=== PATIENT | male | born 1995 | race Caucasian/White ===

== ENCOUNTER 2016-11-08 18:56 | Emergency (ER) | payer SELFPAY ==
[2016-11-08 19:14] VITALS: BP 138/65
--- NOTE | 2016-11-08 19:40 | EDM.PDOC ---
ED HPI GENERAL MEDICAL PROBLEM - General Chief Complaint: Abdominal Pain Stated Complaint: LOWER ABDOMINAL/GROIN PAIN Time Seen by Provider: 11/08/16 19:39 Source of Information: Reports: Patient History Limitations: Reports: No Limitations - History of Present Illness INITIAL COMMENTS - FREE TEXT/NARRATIVE: 21 y/o M with lower abd pain. Started today. Has had it previously over past few months, has always resolved without seeking medical attention. Pain is located across lower abdomen. Sharp. Constant. Waxes and wanes, no provoking or relieving factors. Currently moderate severity. No known injury but he does lift weights. No Fever. No vomiting/diarrhea/constipation. Normal BM today,no blood. No dysuria or hematuria. Pain does radiate to testicular area. Mild testicular pain. No swelling or injury or discharge. Lower Abdomen Pain Score (Numeric/FACES): 5 - Related Data Allergies Allergy/AdvReac Type Severity Reaction Status Date / Time No Known Allergies Allergy Verified 11/08/16 19:14 Home Meds: Home Meds . [No Known Home Meds] 11/08/16 [History] Past Medical History - Past Health History Medical/Surgical History: Denies Medical/Surgical History Social & Family History - Tobacco Use Smoking Status *Q: Never Smoker - Caffeine Use Caffeine Use: Reports: Soda - Recreational Drug Use Recreational Drug Use: No ED ROS GENERAL - Review of Systems Review Of Systems: See Below Constitutional: Denies: Fever HEENT: Reports: No Symptoms Respiratory: Denies: Shortness of Breath, Cough Cardiovascular: Denies: Chest Pain Endocrine: Reports: No Symptoms GI/Abdominal: Reports: Abdominal Pain : Denies: Dysuria Musculoskeletal: Reports: No Symptoms ED EXAM, GI/ABD - Physical Exam Exam: See Below Exam Limited By: No Limitations General Appearance: Alert, WD/WN, No Apparent Distress Ears: Normal External Exam Nose: Normal Inspection Throat/Mouth: Normal Inspection, Normal Voice, No Airway Compromise Head: Atraumatic, Normocephalic Neck: Normal Inspection, Supple, Non-Tender, Full Range of Motion Respiratory/Chest: No Respiratory Distress, Lungs Clear, Normal Breath Sounds, No Accessory Muscle Use Cardiovascular: Normal Peripheral Pulses, Regular Rate, Rhythm, No Murmur GI/Abdominal Exam: Soft, No Distention, Other (+LLQ and RLQ TTP, mild, no rebound/guarding, no palpable hernia or mass) (Male) Exam: No Hernia, Normal Inspection, Normal Prostate, Scrotum Tenderness (L), Scrotum Tenderness (R) (mild TTP, skin normal). No: Urethral Discharge Neurological: Alert, Oriented, Normal Cognition Psychiatric: Normal Affect, Normal Mood Skin Exam: Warm, Dry, Intact, Normal Color, No Rash Course - Vital Signs Last Recorded V/S: Last Vital Signs Temp 36.8 C 11/08/16 19:11 Pulse 80 11/08/16 19:11 Resp 16 11/08/16 19:11 BP 138/65 11/08/16 19:11 Pulse Ox 99 11/08/16 19:11 - Orders/Labs/Meds Orders: Active Orders 24 hr Category Date Time Status Scrotum and Contents [US] Stat Exams 11/08/16 19:39 Taken Labs: Laboratory Tests 11/08/16 11/08/16 11/08/16 Range/Units 19:39 19:51 19:55 WBC 9.92 H (4.23-9.07) K/mm3 RBC 4.45 L (4.63-6.08) M/mm3 Hgb 13.3 L (13.7-17.5) gm/L Hct 38.3 L (40.1-51.0) % MCV 86.1 (79.0-92.2) fl MCH 29.9 (25.7-32.2) pg MCHC 34.7 (32.2-35.5) g/dl RDW Std Deviation 39.0 (35.1-43.9) fL Plt Count 176 (163-337) K/mm3 MPV 9.7 (9.4-12.3) fl Neut % (Auto) 68.0 H (34.0-67.9) % Lymph % (Auto) 20.8 L (21.8-53.1) % [place] % (Auto) 9.3 (5.3-12.2) % Eos % (Auto) 1.7 (0.8-7.0) Baso % (Auto) 0.0 L (0.1-1.2) % Neut # (Auto) 6.75 H (1.78-5.38) K/mm3 Lymph # (Auto) 2.06 (1.32-3.57) K/mm3 [place] # (Auto) 0.92 H (0.30-0.82) K/mm3 Eos # (Auto) 0.17 (0.04-0.54) K/mm3 Baso # (Auto) 0.00 L (0.01-0.08) K/mm3 Sodium 141 (136-145) mEq/L Potassium 4.1 (3.5-5.1) mEq/L Chloride 106 (98-107) mEq/L Carbon Dioxide 30 (21-32) mEq/L Anion Gap 9.1 (5-15) BUN 14 (7-18) mg/dL Creatinine 1.1 (0.7-1.3) mg/dL Est Cr Clr Drug Dosing 108.76 mL/min Estimated GFR (MDRD) > 60 (>60) mL/min BUN/Creatinine Ratio 12.7 L (14-18) Glucose 100 (74-106) mg/dL Calcium 8.9 (8.5-10.1) mg/dL Total Bilirubin 1.6 H (0.2-1.0) mg/dL AST 15 (15-37) U/L ALT 22 (16-63) U/L Alkaline Phosphatase 52 (46-116) U/L Total Protein 7.1 (6.4-8.2) g/dl Albumin 4.0 (3.4-5.0) g/dl Globulin 3.1 gm/dL Albumin/Globulin Ratio 1.3 (1-2) Lipase 77 (73-393) U/L Urine Color Yellow (Yellow) Urine Appearance Clear (Clear) Urine pH 6.5 (5.0-8.0) Ur Specific [place] > or = 1.030 (1.005-1.030) Urine Protein Trace H (Negative) Urine Glucose (UA) Negative (Negative) Urine Ketones Trace H (Negative) Urine Occult Blood Negative (Negative) Urine Nitrite Negative (Negative) Urine Bilirubin Negative (Negative) Urine Urobilinogen 1.0 (0.2-1.0) Ur Leukocyte Esterase Negative (Negative) Urine RBC 0-5 (0-5) /hpf Urine WBC 0-5 (0-5) /hpf Ur Epithelial Cells Not seen (0-5) /hpf Urine Bacteria Rare (FEW) /hpf Urine Mucus Many H (FEW) /hpf - Re-Assessments/Exams Free Text/Narrative Re-Assessment/Exam: 11/08/16 21:31 Scrotal u/s normal. Labs unremarkable. Exam benign. No definite explanation for pain, possible abdominal wall strain. Plan = ED recheck if worse tomorrow, otherwise PCP f/u as needed. Discussed return precautions. Departure - Departure Time of Disposition: 21:16 Disposition: Home, Self-Care 01 Clinical Impression: Abdominal pain Qualifiers: Abdominal location: lower abdomen, unspecified Qualified Code(s): R10.30 - Lower abdominal pain, unspecified - Discharge Information Instructions: Abdominal Pain, Adult, [id number] Referrals: PCP,None [Primary Care Provider] - Forms: ED Department Discharge Additional Instructions: 1. Take tylenol (acetaminophen) and or ibuprofen as needed for pain 2. Return to the ED for a recheck if your pain gets worse 3. Otherwise follow up with a clinic provider as needed. You may call [phone] if you'd like to schedule here - My Orders Last 24 Hours: My Active Orders 11/08/16 19:39 Scrotum and Contents [US] Stat - Assessment/Plan Last 24 Hours: My Active Orders 11/08/16 19:39 Scrotum and Contents [US] Stat
--- NOTE | 2016-11-12 18:07 | US ---
Testicular ultrasound: Multiple real-time images of the testicles were obtained. Comparison: No previous study. Right and left testicles have a homogeneous ultrasound appearance. No intratesticular abnormality is seen. Both arterial and venous blood flow are seen within the testicles. Small epididymal cyst on the left side measuring 3 mm is seen. Slightly prominent vasculature is noted within the left epididymis possibly due to epididymitis. No significant hydrocele is seen with only minimal fluid seen around the left testicle. Measurements: Right testicle: 4.3 x 2.2 x 3.1 cm Left testicle: 4.3 x 2.1 x 3.1 cm Impression: 1. Slight increased blood flow within the left epididymis raising the possibility of epididymitis. 2. Small epididymal cyst on the left side measuring 3 mm. 3. Testicular ultrasound is otherwise unremarkable. Diagnostic code #3 I mostly agree with preliminary report issued by [facility] - with additional finding of possible left-sided epididymitis ([facility] report finalized on 11/08/16, 9:55 PM Central Time)
== END 2016-11-08 21:31 | disposition home or self-care (01) ==
LOC: JD.ED 18:56 → EDBD 18:56 → JD.ED 21:31
DX: R10.30 Lower abdominal pain, unspecified (principal)
CPT/HCPCS: 36415; 76870; 76870-26; 80053; 81001; 83690; 85025; 93975; 99283; 99284-25

== ENCOUNTER → 2020-06-08 | Day surgery (SDC) | payer BC ==
[~2020-06-08] MED LIST: Bupivacaine 0.5%/EPINEPHrine 1:200,000 50 ML MDV ONE; Dexamethasone 4 MG/ML 5 ML MDV ONE; Glycopyrrolate 0.2 MG/ML SDV ONE; HYDROmorphone 0.5 MG/0.5 ML Syringe IVPUSH PRN; HYDROmorphone 0.5 MG/0.5 ML Syringe ONE; Iopamidol 612 MG/ML 100 ML Bottle IVPUSH ONE; Iopamidol 612 MG/ML 50 ML SDV IVPUSH ONE; Ketorolac 30 MG/ML SDV ONE; Labetalol 100 MG/20 ML MDV ONE; Lactated Ringers 1,000 ML IV SCH; Lactated Ringers 1,000 ML ONE; Lactated Ringers 500 ML IV ONE; Lidocaine 1% 4 ML ONE; Midazolam 1 MG/ML 2 ML SDV IVPUSH PRN; Midazolam 1 MG/ML 2 ML SDV ONE; Ondansetron 4 MG/2 ML SDV IVPUSH PRN; Ondansetron 4 MG/2 ML SDV ONE; Propofol 200 MG/20 ML SDV ONE; Rocuronium 50 MG/5 ML Vial ONE; Sodium Chloride 0.9% 10 ML Syringe FLUSH SCH; Succinylcholine/Sod PF 100 MG/5 ML SYRINGE IV ONE; cefOXitin 2 GM in Premix Bag 1 BAG IV ONE; diphenhydrAMINE 50 MG/ML SDV IVPUSH PRN; ePHEDrine 50 MG/ML SDV IVPUSH PRN; fentaNYL 100 MCG/2 ML SDV IVPUSH PRN; fentaNYL 250 MCG/5 ML SDV ONE; oxyCODONE 5 MG Tab PO PRN
--- NOTE | 2020-06-08 16:05 | EDM.PDOC ---
ED HPI GENERAL MEDICAL PROBLEM - General Chief Complaint: Abdominal Pain Stated Complaint: GROIN PAIN Time Seen by Provider: 06/08/20 16:05 - History of Present Illness INITIAL COMMENTS - FREE TEXT/NARRATIVE: 24-year-old male presents the emergency room with back pain and groin pain. Yesterday the patient had pretty significant back pain and flank pain. This seemed to resolve overnight but this morning the patient had worsening testicular and groin pain. Patient has had pain like this several years ago. He is thought to have a hernia in the past but this can never really been diagnosed. He is not any fevers and chills. However, at the pain it is worse the patient had significant nausea with this but no vomiting he has had decreased appetite all day. The patient does a lot of heavy work is been doing a lot of heavy lifting but this is not new for him. The patient is also noted to be tachycardic he denies any illicit drug use. He is on methylphenidate. abdomen/groin Pain Score (Numeric/FACES): 4 - Related Data Allergies Allergy/AdvReac Type Severity Reaction Status Date / Time No Known Allergies Allergy Verified 06/08/20 15:36 Home Meds: Home Meds Methylphenidate HCl [Methylphenidate ER] 54 mg PO DAILY 06/08/20 [History] Past Medical History - Past Health History Medical/Surgical History: Denies Medical/Surgical History Social & Family History - Tobacco Use Years of Tobacco use: 7 - Caffeine Use Caffeine Use: Reports: Soda - Recreational Drug Use Recreational Drug Use: No ED ROS GENERAL - Review of Systems Review Of Systems: See Below Constitutional: Denies: Fever, Chills HEENT: Reports: No Symptoms Respiratory: Reports: No Symptoms Cardiovascular: Reports: No Symptoms GI/Abdominal: Reports: Abdominal Pain, Nausea. Denies: Constipation, Diarrhea, Vomiting : Reports: No Symptoms Musculoskeletal: Reports: Back Pain (He had back pain yesterday but this seems to have resolved) Skin: Reports: No Symptoms Neurological: Reports: No Symptoms ED EXAM, GI/ABD - Physical Exam Exam: See Below Exam Limited By: No Limitations General Appearance: Alert, No Apparent Distress Head: Atraumatic, Normocephalic Neck: Normal Inspection, Supple, Non-Tender, Full Range of Motion Respiratory/Chest: No Respiratory Distress, Lungs Clear, Normal Breath Sounds Cardiovascular: Regular Rate, Rhythm, No Edema, No Murmur GI/Abdominal Exam: Normal Bowel Sounds, Soft. No: Hernia (Male) Exam: Normal Inspection, Circumcised, Testicular Tenderness (L) (Mild tenderness does not palpate abnormal.). No: Hernia, Inguinal Lymphadenopathy, Penile Lesions, Rash, Testicular Mass Back Exam: Normal Inspection. No: CVA Tenderness (L), CVA Tenderness (R), Muscle Spasm, Paraspinal Tenderness, Vertebral Tenderness Extremities: Normal Inspection, No Pedal Edema Neurological: Alert, Oriented, Normal Cognition Psychiatric: Normal Affect, Normal Mood Course - Vital Signs Last Recorded V/S: Last Vital Signs Temp 36.8 C 06/08/20 15:34 Pulse 107 H 06/08/20 15:34 Resp 18 06/08/20 15:34 BP 160/94 H 06/08/20 15:34 Pulse Ox 96 06/08/20 15:34 - Orders/Labs/Meds Orders: Active Orders 24 hr Category Date Time Status CORONAVIRUS COVID-19 RAPID [MOLEC] Stat Lab 06/08/20 18:45 Ordered Lactated Ringers [Ringers, Lactated] 1,000 ml Med 06/08/20 16:45 Active IV ASDIRECTED Sodium Chloride 0.9% [Saline Flush] Med 06/08/20 17:15 Active 10 ml FLUSH ASDIRECTED Medication Orders Lactated Ringer's (Ringers, Lactated) 1,000 mls @ 125 mls/hr IV ASDIRECTED NAVA Sodium Chloride (Sodium Chloride 0.9% 10 Ml Syringe) 10 ml FLUSH ASDIRECTED NAVA Last Admin: 06/08/20 17:33 Dose: 10 ml Documented by: MARIA EUGENIA Labs: Laboratory Tests 06/08/20 06/08/20 06/08/20 Range/Units 16:51 16:51 18:09 WBC 13.14 H (4.23-9.07) K/mm3 RBC 4.88 (4.63-6.08) M/mm3 Hgb 14.3 (13.7-17.5) gm/dl Hct 42.4 (40.1-51.0) % MCV 86.9 (79.0-92.2) fl MCH 29.3 (25.7-32.2) pg MCHC 33.7 (32.2-35.5) g/dl RDW Std Deviation 40.5 (35.1-43.9) fL Plt Count 216 (163-337) K/mm3 MPV 9.8 (9.4-12.3) fl Neut % (Auto) 86.3 H (34.0-67.9) % Lymph % (Auto) 8.1 L (21.8-53.1) % [place] % (Auto) 5.3 (5.3-12.2) % Eos % (Auto) 0.1 L (0.8-7.0) Baso % (Auto) 0.0 L (0.1-1.2) % Neut # (Auto) 11.34 H (1.78-5.38) K/mm3 Lymph # (Auto) 1.07 L (1.32-3.57) K/mm3 [place] # (Auto) 0.69 (0.30-0.82) K/mm3 Eos # (Auto) 0.01 L (0.04-0.54) K/mm3 Baso # (Auto) 0.00 L (0.01-0.08) K/mm3 Manual Slide Review Abnormal smear Sodium 143 (136-145) mEq/L Potassium 4.0 (3.5-5.1) mEq/L Chloride 104 (98-107) mEq/L Carbon Dioxide 29 (21-32) mEq/L Anion Gap 14.0 (5-15) BUN 14 (7-18) mg/dL Creatinine 1.0 (0.7-1.3) mg/dL Est Cr Clr Drug Dosing 116.60 mL/min Estimated GFR (MDRD) > 60 (>60) mL/min BUN/Creatinine Ratio 14.0 (14-18) Glucose 103 (74-106) mg/dL Calcium 9.2 (8.5-10.1) mg/dL Total Bilirubin 1.7 H (0.2-1.0) mg/dL AST 16 (15-37) U/L ALT 24 (16-63) U/L Alkaline Phosphatase 52 (46-116) U/L Total Protein 7.5 (6.4-8.2) g/dl Albumin 4.4 (3.4-5.0) g/dl Globulin 3.1 gm/dL Albumin/Globulin Ratio 1.4 (1-2) Urine Color Yellow (Yellow) Urine Appearance Clear (Clear) Urine pH 7.5 (5.0-8.0) Ur Specific [place] 1.015 (1.005-1.030) Urine Protein Negative (Negative) Urine Glucose (UA) Negative (Negative) Urine Ketones Negative (Negative) Urine Occult Blood Negative (Negative) Urine Nitrite Negative (Negative) Urine Bilirubin Negative (Negative) Urine Urobilinogen 0.2 (0.2-1.0) Ur Leukocyte Esterase Negative (Negative) Meds: Medications Generic Name Dose Route Start Last Admin Trade Name Freq PRN Reason Stop Dose Admin Lactated Ringer's 1,000 mls @ 125 mls/hr 06/08/20 16:45 Ringers, Lactated IV ASDIRECTED NAVA Sodium Chloride 10 ml 06/08/20 17:15 06/08/20 17:33 Sodium Chloride 0.9% 10 Ml Syringe FLUSH 10 ml ASDIRECTED NAVA Administration Discontinued Medications Generic Name Dose Route Start Last Admin Trade Name Freq PRN Reason Stop Dose Admin Lactated Ringer's 500 mls @ 999 mls/hr 06/08/20 16:41 06/08/20 17:00 Ringers, Lactated IV 06/08/20 17:11 999 mls/hr .BOLUS ONE Administration Iopamidol 50 ml 06/08/20 17:02 06/08/20 17:33 Iopamidol 612 Mg/Ml 50 Ml Sdv IVPUSH 06/08/20 17:03 50 ml ONETIME ONE Administration Iopamidol 100 ml 06/08/20 17:02 06/08/20 17:33 Iopamidol 612 Mg/Ml 100 Ml Bottle IVPUSH 06/08/20 17:03 100 ml ONETIME ONE Administration - Re-Assessments/Exams Free Text/Narrative Re-Assessment/Exam: 06/08/20 18:48 Patient has a modestly elevated white count at slightly over 13,000. CT for his left-sided abdominal pain shows a acute appendicitis on the right side. I did discuss this with the patient and reexamined the patient now the patient does have pain on the right lower quadrant but it is not as severe as the pain on the left. No rebound tenderness yet. Case discussed with Dr. Jones, on-call surgeon who will come evaluate the patient anticipating appendectomy last time the patient ate anything as he had a protein bar between 11 and 1130 this morning. He has had nothing else to eat or drink after this. Departure - Departure Time of Disposition: 18:49 Disposition: DC/Tfer to Critical Access 66 Clinical Impression: Acute appendicitis - Discharge Information Referrals: PCP,None [Primary Care Provider] - Forms: ED Department Discharge Sepsis Event Note (ED) - Evaluation Sepsis Screening Result: No Definite Risk - Focused Exam Vital Signs: Vital Signs Temp Pulse Resp BP Pulse Ox 06/08/20 15:34 36.8 C 107 H 18 160/94 H 96 - My Orders Last 24 Hours: My Active Orders 06/08/20 16:45 Lactated Ringers [Ringers, Lactated] 1,000 ml IV ASDIRECTED 06/08/20 17:15 Sodium Chloride 0.9% [Saline Flush] 10 ml FLUSH ASDIRECTED 06/08/20 18:45 CORONAVIRUS COVID-19 RAPID [MOLEC] Stat - Assessment/Plan Last 24 Hours: My Active Orders 06/08/20 16:45 Lactated Ringers [Ringers, Lactated] 1,000 ml IV ASDIRECTED 06/08/20 17:15 Sodium Chloride 0.9% [Saline Flush] 10 ml FLUSH ASDIRECTED 06/08/20 18:45 CORONAVIRUS COVID-19 RAPID [MOLEC] Stat
--- NOTE | 2020-06-08 17:57 | CT ---
CT abdomen and pelvis Technique: Multiple axial sections were obtained from above the dome of the diaphragm inferiorly through the pubic symphysis. Intravenous contrast was utilized. No oral contrast has been given. Delayed images were obtained through the bladder. Reconstructed coronal and sagittal images were obtained. Comparison: No prior abdominal imaging is available. Findings: Appendix is enlarged. Inflammatory change is also noted around the base of the appendix. Findings are compatible with appendicitis. Visualized lung bases show a nodule on the right side with slight surrounding parenchymal scarring. Nodule shows a small amount of central calcification. This finding is most likely due to a large granuloma measuring 1.7 cm. Liver contains no focal abnormality. Spleen size is normal. Adrenal glands show no nodule. Pancreas appears within normal limits. Gallbladder contains no calcified gallstones. Kidneys show symmetric contrast enhancement with no hydronephrosis or mass. Abdominal aorta shows no aneurysm. No retroperitoneal adenopathy or mesenteric abnormalities are seen. No pelvic mass or adenopathy is appreciated. Delayed images show contrast within both distal ureters and the bladder. Bone window settings were reviewed which show no acute osseous finding. Impression: 1. Findings within the pelvis are compatible with appendicitis. 2. Other findings as noted above which are felt to be nonacute. Diagnostic code #5
--- NOTE | 2020-06-08 19:08 | PCM.PREANE ---
Preanesthetic Assessment - Procedure Proposed Procedure: Laparoscopic Appendectomy - Anesthesia/Transfusion/Family Hx Anesthesia History: Prior Anesthesia Without Reaction Family History of Anesthesia Reaction: No Transfusion History: No Prior Transfusion(s) Intubation History: Unknown - Review of Systems General: No Symptoms Pulmonary: No Symptoms (chews tobacco) Cardiovascular: No Symptoms, Palpitations Gastrointestinal: No Symptoms, Nausea Neurological: No Symptoms (ADHD) Other: Reports: None - Physical Assessment NPO Status Date: 06/08/20 NPO Status Time: 11:00 Vital Signs: Last Vital Signs Temp 36.8 C 06/08/20 15:34 Pulse 107 H 06/08/20 15:34 Resp 18 06/08/20 15:34 BP 160/94 H 06/08/20 15:34 Pulse Ox 96 06/08/20 15:34 Height: 1.78 m Weight: 95.254 kg ASA Class: 2E Mental Status: Alert & Oriented x3 Airway Class: Mallampati = 2 Dentition: Reports: Normal Dentition, Caries Thyro-Mental Finger Breadths: 3 Mouth Opening Finger Breadths: 3 ROM/Head Extension: Full Lungs: Clear to Auscultation, Normal Respiratory Effort Cardiovascular: Regular Rate, Regular Rhythm, No Murmurs - Lab Values: Laboratory Last Values WBC 13.14 K/mm3 (4.23-9.07) H 06/08/20 16:51 RBC 4.88 M/mm3 (4.63-6.08) 06/08/20 16:51 Hgb 14.3 gm/dl (13.7-17.5) 06/08/20 16:51 Hct 42.4 % (40.1-51.0) 06/08/20 16:51 MCV 86.9 fl (79.0-92.2) 06/08/20 16:51 MCH 29.3 pg (25.7-32.2) 06/08/20 16:51 MCHC 33.7 g/dl (32.2-35.5) 06/08/20 16:51 RDW Std Deviation 40.5 fL (35.1-43.9) 06/08/20 16:51 Plt Count 216 K/mm3 (163-337) 06/08/20 16:51 MPV 9.8 fl (9.4-12.3) 06/08/20 16:51 Neut % (Auto) 86.3 % (34.0-67.9) H 06/08/20 16:51 Lymph % (Auto) 8.1 % (21.8-53.1) L 06/08/20 16:51 [place] % (Auto) 5.3 % (5.3-12.2) 06/08/20 16:51 Eos % (Auto) 0.1 (0.8-7.0) L 06/08/20 16:51 Baso % (Auto) 0.0 % (0.1-1.2) L 06/08/20 16:51 Neut # (Auto) 11.34 K/mm3 (1.78-5.38) H 06/08/20 16:51 Lymph # (Auto) 1.07 K/mm3 (1.32-3.57) L 06/08/20 16:51 [place] # (Auto) 0.69 K/mm3 (0.30-0.82) 06/08/20 16:51 Eos # (Auto) 0.01 K/mm3 (0.04-0.54) L 06/08/20 16:51 Baso # (Auto) 0.00 K/mm3 (0.01-0.08) L 06/08/20 16:51 Manual Slide Review Abnormal smear 06/08/20 16:51 Sodium 143 mEq/L (136-145) 06/08/20 16:51 Potassium 4.0 mEq/L (3.5-5.1) 06/08/20 16:51 Chloride 104 mEq/L (98-107) 06/08/20 16:51 Carbon Dioxide 29 mEq/L (21-32) 06/08/20 16:51 Anion Gap 14.0 (5-15) 06/08/20 16:51 BUN 14 mg/dL (7-18) 06/08/20 16:51 Creatinine 1.0 mg/dL (0.7-1.3) 06/08/20 16:51 Est Cr Clr Drug Dosing 116.60 mL/min 06/08/20 16:51 Estimated GFR (MDRD) > 60 mL/min (>60) 06/08/20 16:51 BUN/Creatinine Ratio 14.0 (14-18) 06/08/20 16:51 Glucose 103 mg/dL (74-106) 06/08/20 16:51 Calcium 9.2 mg/dL (8.5-10.1) 06/08/20 16:51 Total Bilirubin 1.7 mg/dL (0.2-1.0) H 06/08/20 16:51 AST 16 U/L (15-37) 06/08/20 16:51 ALT 24 U/L (16-63) 06/08/20 16:51 Alkaline Phosphatase 52 U/L (46-116) 06/08/20 16:51 Total Protein 7.5 g/dl (6.4-8.2) 06/08/20 16:51 Albumin 4.4 g/dl (3.4-5.0) 06/08/20 16:51 Globulin 3.1 gm/dL 06/08/20 16:51 Albumin/Globulin Ratio 1.4 (1-2) 06/08/20 16:51 Urine Color Yellow (Yellow) 06/08/20 18:09 Urine Appearance Clear (Clear) 06/08/20 18:09 Urine pH 7.5 (5.0-8.0) 06/08/20 18:09 Ur Specific [place] 1.015 (1.005-1.030) 06/08/20 18:09 Urine Protein Negative (Negative) 06/08/20 18:09 Urine Glucose (UA) Negative (Negative) 06/08/20 18:09 Urine Ketones Negative (Negative) 06/08/20 18:09 Urine Occult Blood Negative (Negative) 06/08/20 18:09 Urine Nitrite Negative (Negative) 06/08/20 18:09 Urine Bilirubin Negative (Negative) 06/08/20 18:09 Urine Urobilinogen 0.2 (0.2-1.0) 06/08/20 18:09 Ur Leukocyte Esterase Negative (Negative) 06/08/20 18:09 Above labs reviewed and noted and within acceptable ranges to proceed with procedure. - Allergies Allergies/Adverse Reactions: Allergies Allergy/AdvReac Type Severity Reaction Status Date / Time No Known Allergies Allergy Verified 06/08/20 15:36 - Anesthesia Plan Pre-Op Medication Ordered: None - Acknowledgements Anesthesia Type Planned: General Anesthesia Pt an Appropriate Candidate for the Planned Anesthesia: Yes Alternatives and Risks of Anesthesia Discussed w Pt/Guardian: Yes Pt/Guardian Understands and Agrees with Anesthesia Plan: Yes PreAnesthesia Questionnaire - Past Health History Medical/Surgical History: Denies Medical/Surgical History - SUBSTANCE USE Tobacco Use Within Last Twelve Months: Snuff/Dip Recreational Drug Use History: No - HOME MEDS Home Medications: Home Meds Methylphenidate HCl [Methylphenidate ER] 54 mg PO DAILY 06/08/20 [History] - CURRENT (IN HOUSE) MEDS Current Meds: Current Medications Lactated Ringer's (Ringers, Lactated) 1,000 mls @ 125 mls/hr IV ASDIRECTED NAVA Sodium Chloride (Sodium Chloride 0.9% 10 Ml Syringe) 10 ml FLUSH ASDIRECTED NAVA Last Admin: 06/08/20 17:33 Dose: 10 ml Documented by: Discontinued Medications Lactated Ringer's (Ringers, Lactated) 500 mls @ 999 mls/hr IV .BOLUS ONE Stop: 06/08/20 17:11 Last Admin: 06/08/20 17:00 Dose: 999 mls/hr Documented by: Iopamidol (Iopamidol 612 Mg/Ml 50 Ml Sdv) 50 ml IVPUSH ONETIME ONE Stop: 06/08/20 17:03 Last Admin: 06/08/20 17:33 Dose: 50 ml Documented by: Iopamidol (Iopamidol 612 Mg/Ml 100 Ml Bottle) 100 ml IVPUSH ONETIME ONE Stop: 06/08/20 17:03 Last Admin: 06/08/20 17:33 Dose: 100 ml Documented by:
--- NOTE | 2020-06-08 19:33 | PCM.HP.2 ---
H&P History of Present Illness - General Date of Service: 06/08/20 Admit Problem/Dx: Admission Diagnosis/Problem Admission Diagnosis/Problem Appendectomy Source of Information: Patient History Limitations: Reports: No Limitations - History of Present Illness Initial Comments - Free Text/Narative: Mr. Roberts is a 24 yo man who developed groin pain this morning. He has had si milar pain in the past. However, today the pain has been worse, and became more severe abdominal pain associated with nausea. In the ER, he is found to have a WBC 13,[address] scan showing evidence of acute appendicitis. abdomen/groin Pain Score (Numeric/FACES): 4 - Related Data Allergies/Adverse Reactions: Allergies Allergy/AdvReac Type Severity Reaction Status Date / Time No Known Allergies Allergy Verified 06/08/20 15:36 Home Medications: Home Meds Methylphenidate HCl [Methylphenidate ER] 54 mg PO DAILY 06/08/20 [History] Past Medical History - Past Health History Medical/Surgical History: Denies Medical/Surgical History Social & Family History - Tobacco Use Years of Tobacco use: 7 - Caffeine Use Caffeine Use: Reports: Soda - Recreational Drug Use Recreational Drug Use: No H&P Review of Systems - Review of Systems: Review Of Systems: See Below General: Reports: Malaise HEENT: Reports: No Symptoms Pulmonary: Reports: No Symptoms Cardiovascular: Reports: No Symptoms Gastrointestinal: Reports: Abdominal Pain, Nausea Musculoskeletal: Reports: No Symptoms Skin: Reports: No Symptoms Psychiatric: Reports: No Symptoms Neurological: Reports: No Symptoms Hematologic/Lymphatic: Reports: No Symptoms Immunologic: Reports: No Symptoms Exam - Exam Exam: See Below - Vital Signs Vital Signs: Last Vital Signs Temp 36.8 C 06/08/20 15:34 Pulse 107 H 06/08/20 15:34 Resp 18 06/08/20 15:34 BP 160/94 H 06/08/20 15:34 Pulse Ox 96 06/08/20 15:34 Weight: 95.254 kg - Exam General: Alert, Oriented, Cooperative HEENT: Conjunctiva Clear Neck: Supple, Trachea Midline Lungs: Clear to Auscultation, Normal Respiratory Effort Cardiovascular: Regular Rate, Regular Rhythm GI/Abdominal Exam: Soft, No Mass, Other (mild tenderness at RLQ without peritonitis) Back Exam: Normal Inspection Extremities: Normal Inspection Skin: Warm, Dry Neuro Extensive - Mental Status: Alert, Oriented x3 Psychiatric: Normal Mood - Patient Data Lab Results Last 24 hrs: Laboratory Results - last 24 hr 06/08/20 06/08/20 06/08/20 Range/Units 16:51 16:51 18:09 WBC 13.14 H (4.23-9.07) K/mm3 RBC 4.88 (4.63-6.08) M/mm3 Hgb 14.3 (13.7-17.5) gm/dl Hct 42.4 (40.1-51.0) % MCV 86.9 (79.0-92.2) fl MCH 29.3 (25.7-32.2) pg MCHC 33.7 (32.2-35.5) g/dl RDW Std Deviation 40.5 (35.1-43.9) fL Plt Count 216 (163-337) K/mm3 MPV 9.8 (9.4-12.3) fl Neut % (Auto) 86.3 H (34.0-67.9) % Lymph % (Auto) 8.1 L (21.8-53.1) % Callahan % (Auto) 5.3 (5.3-12.2) % Eos % (Auto) 0.1 L (0.8-7.0) Baso % (Auto) 0.0 L (0.1-1.2) % Neut # (Auto) 11.34 H (1.78-5.38) K/mm3 Lymph # (Auto) 1.07 L (1.32-3.57) K/mm3 Callahan # (Auto) 0.69 (0.30-0.82) K/mm3 Eos # (Auto) 0.01 L (0.04-0.54) K/mm3 Baso # (Auto) 0.00 L (0.01-0.08) K/mm3 Manual Slide Review Abnormal smear Sodium 143 (136-145) mEq/L Potassium 4.0 (3.5-5.1) mEq/L Chloride 104 (98-107) mEq/L Carbon Dioxide 29 (21-32) mEq/L Anion Gap 14.0 (5-15) BUN 14 (7-18) mg/dL Creatinine 1.0 (0.7-1.3) mg/dL Est Cr Clr Drug Dosing 116.60 mL/min Estimated GFR (MDRD) > 60 (>60) mL/min BUN/Creatinine Ratio 14.0 (14-18) Glucose 103 (74-106) mg/dL Calcium 9.2 (8.5-10.1) mg/dL Total Bilirubin 1.7 H (0.2-1.0) mg/dL AST 16 (15-37) U/L ALT 24 (16-63) U/L Alkaline Phosphatase 52 (46-116) U/L Total Protein 7.5 (6.4-8.2) g/dl Albumin 4.4 (3.4-5.0) g/dl Globulin 3.1 gm/dL Albumin/Globulin Ratio 1.4 (1-2) Urine Color Yellow (Yellow) Urine Appearance Clear (Clear) Urine pH 7.5 (5.0-8.0) Ur Specific Mullens 1.015 (1.005-1.030) Urine Protein Negative (Negative) Urine Glucose (UA) Negative (Negative) Urine Ketones Negative (Negative) Urine Occult Blood Negative (Negative) Urine Nitrite Negative (Negative) Urine Bilirubin Negative (Negative) Urine Urobilinogen 0.2 (0.2-1.0) Ur Leukocyte Esterase Negative (Negative) Result Diagrams: 06/08/20 16:51 06/08/20 16:51 Sepsis Event Note - Evaluation Sepsis Screening Result: No Definite Risk - Focused Exam Vital Signs: Vital Signs Temp Pulse Resp BP Pulse Ox 06/08/20 15:34 36.8 C 107 H 18 160/94 H 96 Problem List Initiated/Reviewed/Updated: Yes Orders Last 24hrs: Active Orders 24 hr Category Date Time Status Patient Status [ADT] Routine ADT 06/08/20 19:06 Active CORONAVIRUS COVID-19 ISABELLE [MOLEC] Stat Lab 06/08/20 18:51 Received Lactated Ringers [Ringers, Lactated] 1,000 ml Med 06/08/20 16:45 Active IV ASDIRECTED Sodium Chloride 0.9% [Saline Flush] Med 06/08/20 17:15 Active 10 ml FLUSH ASDIRECTED cefOXitin [Mefoxin in Dextrose,Iso-Osm 2 GM/50 ML] 2 gm Med 06/08/20 19:30 O rdered Premix Bag 1 bag IV ONETIME Schedule Procedure [COMM] Stat Oth 06/08/20 19:07 Ordered Medication Orders Lactated Ringer's (Ringers, Lactated) 1,000 mls @ 125 mls/hr IV ASDIRECTED [facility] Cefoxitin Sodium 2 gm/ Premix 50 mls @ 100 mls/hr IV ONETIME ONE Stop: 06/08/20 19:59 Sodium Chloride (Sodium Chloride 0.9% 10 Ml Syringe) 10 ml FLUSH ASDIRECTED [facility] Last Admin: 06/08/20 17:33 Dose: 10 ml Documented by: MARIA EUGENIA Assessment/Plan Comment:: Acute appendicitis. Plan for laparoscopic appendectomy followed by discharge to home this evening. - Mortality Measure Prognosis:: Good
--- NOTE | 2020-06-08 19:37 | PCM.PRNOTE ---
- Free Text/Narrative Note: Date: 06/08/2020 Operation: laparoscopic appendectomy Indication: acute appendicitis Surgeon: Luke Jones MD Findings: acute appendicitis Detailed Report: The patient was taken to the operating room and placed in supine position. Timeout was performed and general endotracheal anesthesia was initiated. The le ft arm was tucked at the patient's side. Abdominal hair was clipped, and the abdomen was prepped and draped in usual sterile fashion. A Veress needle was placed at the left upper quadrant in order to establish pneumoperitoneum. Once insufflation pressure reached 15 cm water, air was aspirated just inferior to the umbilicus with needle and syringe. Local anesthetic was injected at this site and a bladed 12 mm trocar was placed. A 5 mm 30 degree laparoscope was inserted into the abdomen and contents were inspected. The site of Veress insertion looked good with no evidence of inadvertent injury. The Veress was removed. Additional 5 mm bladed trochars were placed under laparoscopic visualization, one just superior to the pubic symphysis and one in the left lower quadrant. The patient was positioned in Trendelenburg and rotated towards the surgeon standing on the patient's left side. The appendix was visualized. The appendix was inflamed without evidence of gangrene or perforation. A window was developed in the mesoappendix where it was seen coming off from the cecum. The appendix was stapled with a 30 mm white load flush with the base of the cecum. The mesoappendix was divided using the [place] LigaSure. The specimen was placed in an Endo Catch and removed through the umbilical port site. The dissection field appeared clean and dry. The umbilical incision site was closed at the level of fascia with 0 Vicryl using a laparoscopic suture passer. The suprapubic port was removed under laparoscopic visualization. Hemostasis was satisfactory. Pneumoperitoneum was released. All incisions were closed at the level of skin with 4-0 Vicryl and dressed with Dermabond. The patient tolerated the procedure well, was extubated in the operating room and transferred to the recovery unit in good condition.
--- NOTE | 2020-06-08 20:58 | PCM.POSTAN ---
POST ANESTHESIA ASSESSMENT - MENTAL STATUS Mental Status: Alert - VITAL SIGNS Vital Signs: Last Vital Signs Temp 36.7 C 06/08/20 20:52 Pulse 95 06/08/20 20:52 Resp 14 06/08/20 20:52 BP 145/91 H 06/08/20 20:52 Pulse Ox 100 06/08/20 20:52 - RESPIRATORY Respiratory Status: Respiratory Rate WNL, Airway Patent, O2 Saturation Stable, Supplemental Oxygen - CARDIOVASCULAR CV Status: Pulse Rate WNL, Blood Pressure Stable - GASTROINTESTINAL GI Status: No Symptoms - POST OP HYDRATION Hydration Status: Adequate & Stable
--- NOTE | 2020-06-08 21:12 | PCM48HPAN ---
Post Anesthesia Note - EVALUATION WITHIN 48HRS OF ANESTHETIC Vital Signs in Normal Range: Yes Patient Participated in Evaluation: Yes Respiratory Function Stable: Yes Airway Patent: Yes Cardiovascular Function Stable: Yes Hydration Status Stable: Yes Pain Control Satisfactory: Yes Nausea and Vomiting Control Satisfactory: Yes Mental Status Recovered: Yes Vital Signs: Last Vital Signs Temp 36.7 C 06/08/20 21:00 Pulse 91 06/08/20 21:00 Resp 14 06/08/20 21:00 BP 158/95 H 06/08/20 21:00 Pulse Ox 100 06/08/20 21:00
[2020-06-08 21:56] VITALS: BP 150/98; PULSE 87
== END ==
LOC: JD.ED 14:44 → JD.SDS 19:36
PROVIDERS: ATTEND Surgery
DX: K35.33 Acute appendicitis with perforation, localized peritonitis, and gangrene, with abscess (principal); Z01.812 Encounter for preprocedural laboratory examination; Z20.822 Contact with and (suspected) exposure to COVID-19
CPT/HCPCS: 36415; 44970; 74177; 80053; 81003; 85025; 87635; 99285; J0330; J0694; J1100; J1170; J1885; J2405; J2704; J2710; J3010; J3490; J7120; Q9967; 00840; 99140; 99284; J2250; U0002